=== PATIENT | female | born 1955 | race Caucasian/White ===

== ENCOUNTER 2022-02-06 08:04 | Outpatient (CLI) | payer MEDICARE, BC, SELFPAY ==
--- NOTE | 2022-02-06 08:15 | CRLHL7_ITS ---
For Patients: As a result of the Century Cures Act, medical imaging exams and procedure reports are released immediately into your electronic medical record. You may view this report before your referring provider. If you have questions, please contact your health care provider. 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 FINDINGS: Sonographic images demonstrate a normal size and smooth outer contour of the uterus. Uterus measures 6.7 cm in length by 2.6 cm in AP diameter by 4.1 cm in transverse dimension. The myometrium has a heterogeneous echotexture. Left-sided intramural leiomyoma in the mid uterus measuring 2.3 x 1.2 x 1.5 cm. Similar hypoechoic intramural fibroid within the right fundal myometrium measuring 7 x 7 x 9 millimeters. The endometrial lining heterogeneous with multiple small cystic areas and measures 9 mm in composite thickness. The ovaries are not visualized. There are no suspicious fluid collections within the cul-de-sac. IMPRESSION: Thickened and heterogeneous endometrium with multiple cystic areas. The endometrial stripe measures 9 millimeters. Two intramural uterine fibroids measuring up to 2.3 cm. Dictated by Berny Sinhg MD @ 02/06/2022 10:15:49 AM (Electronically Signed)
== END 2022-02-06 08:05 | disposition home or self-care (01) ==
LOC: US 08:05
PROVIDERS: PCP Family Medicine; Visit Provider Obstetrics & Gynecology
DX: N84.1 Polyp of cervix uteri (principal); R93.89 Abnormal findings on diagnostic imaging of other specified body structures; D25.1 Intramural leiomyoma of uterus
CPT/HCPCS: 76830; 76856

== ENCOUNTER 2022-04-01 09:00 | Outpatient (RCR) | payer MEDICARE, BC, SELFPAY ==
[2022-01-30 11:44] LABS: Creatinine* 0.6 mg/dL (0.5-1.5); Estimated Glomerular Filt Rate 99 ml/min
[2022-04-01 10:58] VITALS: BP 152/87; PULSE 79; RESP 16; TEMP 36.7; O2SAT 100
[2022-04-01 11:15] VITALS: BP 120/77; PULSE 72; RESP 18; TEMP 36.6; O2SAT 99
[2022-04-01 12:00] VITALS: BP 153/82; PULSE 76; RESP 18; TEMP 36.7; O2SAT 100
[2022-04-01 13:00] VITALS: BP 178/98; PULSE 80; RESP 16; TEMP 36.8; O2SAT 98
[2022-04-01 14:01] VITALS: BP 165/88; PULSE 78; RESP 16; TEMP 37.1; O2SAT 96
[2022-04-01] MEDS: MAGNESIUM IV 4 GM/100 ML PIGGYBACK IVPB (14:05)
== END 2022-07-29 23:59 | disposition home or self-care (01) ==
LOC: CCIC 09:00
PROVIDERS: PCP Family Medicine; Referring Provider Family Medicine; Visit Provider Radiology Radiation Oncology
DX: C80.1 Malignant (primary) neoplasm, unspecified (principal)
CPT/HCPCS: 36415; 36430; 82565; 82575; 86850; 86900; 86901; 86922; 96365; 96366; 99211; J3475; P9016